=== PATIENT | female | born 1995 | race Caucasian/White ===

== ENCOUNTER 2018-02-28 23:01 | Emergency (ER) | payer OTHER, SELFPAY ==
[2018-02-28] MEDS ORDERED: IBUPROFEN 400 MG TAB ONE (23:30)
[2018-02-28] MEDS ORDERED: IBUPROFEN 200 MG TAB PO ONE (23:31)
--- NOTE | 2018-03-01 00:23 | ER ---
Nurse's Notes [facility] Name: Bobby Penn Age: 22 yrs Sex: Female : 1995 Arrival Date: 02/28/2018 Time: 23:03 Bed 20 Private MD: Diagnosis: Influenza due to other identified influenza virus-Influenza B Presentation: 02/28 23:08 Presenting complaint: Patient states: pt soaked in epsom salt bath last night for about tl3 45 minutes to an hour, when she got out her muscles were hurting and she felt weak. States that the water was really hot, s/s have just gotten worse throughout the day. Transition of care: patient was not received from another setting of care. Onset of symptoms was February 27, 2018. Risk Assessment: Do you want to hurt yourself or someone else? Patient reports no desire to harm self or others. Initial Sepsis Screen: Does the patient meet any 2 criteria? No. Patient's initial sepsis screen is negative. Does the patient have a suspected source of infection? No. Patient's initial sepsis screen is negative. Care prior to arrival: None. 23:08 Method Of Arrival: Ambulatory tl3 23:08 Acuity: CLEMENT 4 tl3 Triage Assessment: 23:12 Headache History: The patient has had previous headaches and this one is similar to tl3 previous episodes. General: Appears uncomfortable, Behavior is calm, cooperative, appropriate for age. Pain: Complains of pain in generalized muscle aches Pain currently is 0 out of 10 on a pain scale. Pain began 1 day ago. Also complains of no other associated symptoms. Neuro: Level of Consciousness is awake, alert, obeys commands, Oriented to person, place, time, situation, Appropriate for age. Respiratory: Reports cough that is. 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 - Social history:: Smoking status: Patient/guardian denies using tobacco, never smoked. - Ebola Screening: : No symptoms or risks identified at this time. Screenin:26 Abuse screen: Denies threats or abuse. Nutritional screening: No deficits noted. jd3 Tuberculosis screening: No symptoms or risk factors identified. Fall Risk Ambulatory Aid- None/Bed Rest/Nurse Assist (0 pts). Gait- Normal/Bed Rest/Wheelchair (0 pts) Mental Status- Oriented to own ability (0 pts). Total Dye Fall Scale indicates No Risk (0-24 pts). Assessment: 23:25 General: Appears in no apparent distress. uncomfortable, Behavior is calm, cooperative, jd3 appropriate for age. Pain: Denies pain. Neuro: Level of Consciousness is awake, alert, obeys commands, Oriented to person, place, time, situation, Appropriate for age reports general fatigue. Cardiovascular: Denies chest pain, Capillary refill < 3 seconds Patient's skin is warm and dry. Respiratory: Reports cough that is Airway is patent Respiratory effort is even, unlabored, Respiratory pattern is regular, symmetrical, Breath sounds are clear bilaterally. GI: No signs and/or symptoms were reported involving the gastrointestinal system. : No signs and/or symptoms were reported regarding the genitourinary system. EENT: No signs and/or symptoms were reported regarding the EENT system. Derm: Skin is intact, Skin is dry, Skin is normal, Skin temperature is warm. Musculoskeletal: Circulation, motion, and sensation intact. Range of motion: intact in all extremities. 03/01 00:49 Reassessment: Patient appears in no apparent distress at this time. Patient and/or jd3 family updated on plan of care and expected duration. Pain level reassessed. Patient is alert, oriented x 3, equal unlabored respirations, skin warm/dry/pink. Vital Signs: 02/28 23:12 BP 128 / 90; Pulse 130; Resp 18; Temp 100.7(O); Pulse Ox 98% ; Weight 108.86 kg; Height tl3 5 ft. 7 in. (170.18 cm); 03/01 00:34 BP 125 / 71; Pulse 107; Temp 99.1; Pulse Ox 97% on R/A; jd3 02/28 23:12 Body Mass Index 37.59 (108.86 kg, 170.18 cm) tl3 ED Course: 02/28 23:03 Patient arrived in ED. am2 23:12 Triage completed. tl3 23:12 Arm band placed on left wrist. tl3 23:17 Henry Gabriel, RN is Primary Nurse. jd3 23:24 Flu Sent. tl3 23:26 Giovani Britt NP is PHCP. pm1 23:26 Gama Andrew MD is Attending Physician. pm1 23:26 Patient has correct armband on for positive identification. Bed in low position. Call jd3 light in reach. Side rails up X 1. Adult w/ patient. 03/01 00:50 No provider procedures requiring assistance completed. Patient did not have IV access jd3 during this emergency room visit. Administered Medications: 02/28 23:22 Drug: Ibuprofen 600 mg Route: PO; tl3 03/01 00:38 Follow up: Response: No adverse reaction jd3 00:38 Drug: Tamiflu 75 mg Route: PO; jd3 00:38 Follow up: Response: Medication administered at discharge. jd3 Outcome: 00:22 Discharge ordered by . pm1 00:50 Discharged to home ambulatory, with family. jd3 00:50 Condition: stable 00:50 Discharge instructions given to patient, family, Instructed on discharge instructions, follow up and referral plans. medication usage, Demonstrated understanding of instructions, follow-up care, medications, Prescriptions given X 1. 00:50 Patient left the ED. jd3 Signatures: Giovani Britt NP MAGNETIC RESONANCE IMAGING COORDINATOR pm1 Maya Scruggs am2 Henry Gabriel RN RN jd3 Kassidy Mirza RN RN tl3
--- NOTE | 2018-03-01 00:23 | EDPHYS ---
Physician Documentation [facility] Name: Bobby Penn Age: 22 yrs Sex: Female : 1995 Arrival Date: 02/28/2018 Time: 23:03 Bed 20 Private MD: ED Physician Gama Andrew HPI: 03/01 01:00 This 22 yrs old Female presents to ER via Ambulatory with complaints of pm1 muscle aches and fever. 01:00 Onset: The symptoms/episode began/occurred last night. Associated signs and symptoms: pm1 Pertinent positives: fever, bodyaches, Pertinent negatives: abdominal pain, chest pain, constipation, cough, diarrhea, shortness of breath, vomiting. Modifying factors: The patient symptoms are alleviated by nothing, the patient symptoms are aggravated by nothing. The patient has not experienced similar symptoms in the past. The patient has not recently seen a physician. Negative flu vaccine. 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 - Social history:: Smoking status: Patient/guardian denies using tobacco, never smoked. - Ebola Screening: : No symptoms or risks identified at this time. ROS: 03/01 01:00 Eyes: Negative for injury, pain, redness, and discharge, ENT: Negative for injury, pm1 pain, and discharge, Neck: Negative for injury, pain, and swelling, Cardiovascular: Negative for chest pain, palpitations, and edema, Respiratory: Negative for shortness of breath, cough, wheezing, and pleuritic chest pain, Abdomen/GI: Negative for abdominal pain, nausea, vomiting, diarrhea, and constipation, Back: Negative for injury and pain, : Negative for injury, bleeding, discharge, and swelling, MS/Extremity: Negative for injury and deformity, Skin: Negative for injury, rash, and discoloration, Neuro: Negative for headache, weakness, numbness, tingling, and seizure. Constitutional: Positive for body aches, fever, Negative for chills, poor PO intake. Exam: 01:00 Constitutional: This is a well developed, well nourished patient who is awake, alert, pm1 and in no acute distress. Head/Face: Normocephalic, atraumatic. Eyes: Pupils equal round and reactive to light, extra-ocular motions intact. Lids and lashes normal. Conjunctiva and sclera are non-icteric and not injected. Cornea within normal limits. Periorbital areas with no swelling, redness, or edema. ENT: Nares patent. No nasal discharge, no septal abnormalities noted. Tympanic membranes are normal and external auditory canals are clear. Oropharynx with no redness, swelling, or masses, exudates, or evidence of obstruction, uvula midline. Mucous membranes moist. Neck: Trachea midline, no thyromegaly or masses palpated, and no cervical lymphadenopathy. Supple, full range of motion without nuchal rigidity, or vertebral point tenderness. No Meningismus. Chest/axilla: Normal chest wall appearance and motion. Nontender with no deformity. No lesions are appreciated. Cardiovascular: Regular rate and rhythm with a normal S1 and S2. No gallops, murmurs, or rubs. Normal PMI, no JVD. No pulse deficits. Respiratory: Lungs have equal breath sounds bilaterally, clear to auscultation and percussion. No rales, rhonchi or wheezes noted. No increased work of breathing, no retractions or nasal flaring. Abdomen/GI: Soft, non-tender, with normal bowel sounds. No distension or tympany. No guarding or rebound. No evidence of tenderness throughout. Back: No spinal tenderness. No costovertebral tenderness. Full range of motion. Skin: Warm, dry with normal turgor. Normal color with no rashes, no lesions, and no evidence of cellulitis. MS/ Extremity: Pulses equal, no cyanosis. Neurovascular intact. Full, normal range of motion. 01:00 Neuro: Orientation: is normal, Motor: is normal, moves all fours. Vital Signs: 02/28 23:12 BP 128 / 90; Pulse 130; Resp 18; Temp 100.7(O); Pulse Ox 98% ; Weight 108.86 kg; Height tl3 5 ft. 7 in. (170.18 cm); 03/01 00:34 BP 125 / 71; Pulse 107; Temp 99.1; Pulse Ox 97% on R/A; jd3 02/28 23:12 Body Mass Index 37.59 (108.86 kg, 170.18 cm) tl3 MDM: 02/28 23:55 Patient medically screened. pm1 03/01 00:21 Data reviewed: vital signs. Data interpreted: Pulse oximetry: on room air is 98 %. pm1 Interpretation: normal. Counseling: I had a detailed discussion with the patient and/or guardian regarding: the historical points, exam findings, and any diagnostic results supporting the discharge/admit diagnosis, lab results, the need for outpatient follow up, to return to the emergency department if symptoms worsen or persist or if there are any questions or concerns that arise at home. 02/28 23:19 Order name: Flu; Complete Time: 00:11 tl3 Administered Medications: 02/28 23:22 Drug: Ibuprofen 600 mg Route: PO; tl3 03/01 00:38 Follow up: Response: No adverse reaction jd3 00:38 Drug: Tamiflu 75 mg Route: PO; jd3 00:38 Follow up: Response: Medication administered at discharge. jd3 Disposition: 02:01 Co-signature as Attending Physician, Gama Andrew MD I agree with the assessment and wa plan of care. Disposition: 03/01/18 00:22 Discharged to Home. Impression: Influenza due to other identified influenza virus - Influenza B. - Condition is Stable. - Discharge Instructions: Influenza, Adult. - Prescriptions for Tamiflu 75 mg Oral Capsule - take 1 tablet by ORAL route every 12 hours for 5 days; 10 tablet. - Medication Reconciliation Form, Thank You Letter, Antibiotic Education, Prescription Opioid Use form. - Follow up: Emergency Department; When: As needed; Reason: Worsening of condition. Follow up: Private Physician; When: 2 - 3 days; Reason: Recheck today's complaints, Continuance of care, Re-evaluation by your physician. - Problem is new. - Symptoms have improved. Signatures: Dispatcher [employer] EDMS Giovani Britt, ACID DUMPER ACID DUMPER pm1 Gama Andrew MD MD wa Davies, Jonathon RN RN Kassidy Lopez RN RN tl3 Corrections: (The following items were deleted from the chart) 00:50 00:22 03/01/2018 00:22 Discharged to Home. Impression: Influenza due to other jd3 identified influenza virus - Influenza B. Condition is Stable. Forms are Medication Reconciliation Form, Thank You Letter, Antibiotic Education, Prescription Opioid Use. Follow up: Emergency Department; When: As needed; Reason: Worsening of condition. Follow up: Private Physician; When: 2 - 3 days; Reason: Recheck today's complaints, Continuance of care, Re-evaluation by your physician. Problem is new. Symptoms have improved. pm1
[2018-03-01] MEDS ORDERED: OSELTAMIVIR 75 MG CAP ONE (00:45)
== END 2018-03-01 00:50 | disposition home or self-care (01) ==
LOC: ER 23:01
DX: J10.1 Influenza due to other identified influenza virus with other respiratory manifestations (principal)
CPT/HCPCS: 87804; 99283